=== PATIENT | female | born 1970 | race African-American/Black ===

== ENCOUNTER → 2016-11-23 | Day surgery (SDC) | payer OTHER ==
[~2016-11-23] VITALS: Ht 157.5 cm; Wt 136.0 kg
[~2016-11-23] MED LIST: ALBUAER3 INH; ALPR1TAB3 PO; BUPIVACAINE/EPINEPHRINE 0.5% PF 30 ML VIAL ONE; CLINDAMYCIN PHOS 900 MG/6 ML VIAL ONE; CYAN100025 SL; DEXT 5%-NACL 0.45% 1000 ML INJ 1,000 ML IV SCH; FAMOTIDINE 20 MG/2 ML VIAL ONE; FLUT1INH7 INH; HYDR12.56 PO; IPRA17I INH; LACTATED RINGER'S 1000 ML INJ 1,000 ML ONE; LORA10TA PO; LOSA50TA PO; MECL-62 PO; METOCLOPRAMIDE HCL 10 MG/2 ML VIAL ONE; MIDAZOLAM HCL 2 MG/2 ML VIAL ONE; OXYB5TAB10 PO; PROPOFOL 200 MG/20 ML AMP IV ONE; SODIUM CHLORIDE 0.9% FLUSH 5 ML FLUSH IVF PRN; SODIUM CHLORIDE 0.9% FLUSH 5 ML FLUSH IVF SCH; SODIUM CHLORIDE 0.9% INJ 100 ML ONE
[2016-11-23 07:28] LABS: HEMATOCRIT 41.7 % (35.0-46.0); MEAN CELL VOLUME 84.3 FL (80.0-100.0); MEAN CORPUSCULAR HEMOGLOBIN 27.5 PG (27.0-34.0); MEAN CORPUSCULAR HGB CONC 32.7 % (32.0-36.0); PLATELET COUNT 341 TH/MM3 (150-450); RED BLOOD COUNT 4.95 MIL/MM3 (4.00-5.30); RED CELL DISTRIBUTION WIDTH 15.2 % (11.6-17.2); REVIEW FLAG FINAL; WHITE BLOOD COUNT 9.6 TH/MM3 (4.0-11.0)
[2016-11-23 07:42] VITALS: BP 157/95; PULSE 74; RESP 20; TEMP 98.1; O2SAT 97
--- NOTE | 2016-11-23 10:42 | HP.UPD ---
H&P Update Date: Nov 23, 2016 Note The Pre-Admit History and Physical Examination regarding the above named patient was reviewed (including, but not limited to, vital signs, medications, allergies, co-morbid conditions), and upon re-examination it is noted that: Indicated with "X" x - the patient's condition has not significantly changed since the last examination. [] - the patient's condition has changed since the last examination. Changes: Sultana Tello MD Nov 23, 2016 10:42
--- NOTE | 2016-11-23 11:57 | HHI.PR ---
Immediate Post Op Note Procedure Date: Nov 23, 2016 Pre Op Diagnosis: (1) De Quervain's tenosynovitis, right Post Op Diagnosis: (1) De Quervain's tenosynovitis, right Surgeon: Sultana Tello Waterproof Bag Sewer(s): None Procedure: Release of the right first dorsal compartment. Anesthesia: MAC Drains: None Tourniquet time (min at mmHg) NA Patient to: SDS Patient Condition: Good Date/Time of Procedure: SEE SURGICAL CARE RECORD Sultana Tello MD Nov 23, 2016 11:57
[2016-11-23 11:58] VITALS: TEMP 98.4
[2016-11-23 12:25] VITALS: BP 148/89; PULSE 71; RESP 16; O2SAT 99
--- NOTE | 2016-11-27 11:17 | MP ---
cc: JEAN BROWNLEE M.D. DATE OF OPERATION 11/23/2016 PREOPERATIVE DIAGNOSIS De Quervain's tenosynovitis of the right wrist. POSTOPERATIVE DIAGNOSIS De Quervain's tenosynovitis of the right wrist. PROCEDURE Release of right first dorsal compartment. ANESTHESIA Local with MAC. SURGEON Dr. Jean Brownlee MD INDICATIONS A 46-year-old female with de Quervain's tenosynovitis of the right wrist. FINDINGS There was a significant amount of inflammation and thickening around the tendons. Indeed there was also a second tunnel. At the completion of the procedure both tunnels had been released. OPERATIVE TIME Approximately 30 minutes. PROCEDURE The patient was seen preoperatively where the site and side were identified and marked. The patient was then taken to the operating room, placed in a supine position. Her identity was checked against the arm band and the consent form, site and side confirmed, time-out called prior to beginning the procedure. The right upper extremities prepped with Hibiclens and draped in the usual sterile fashion. The area to be incised was outlined with a marking pen as a transverse incision over the first dorsal compartment. Once the patient was adequate anesthetized, bupivacaine 0.5% with epinephrine 1:200,000 was injected into the area to be operated. Once the anesthetic had taken effect, a #15 blade was used make an incision down through skin, down to the subcutaneous tissue. Under loupe magnification using spread technique, the first dorsal compartment was identified. It was then divided sharply using the extensor tendons within the compartment as a guide. Once the major part of the compartments was released, it was inspected for a second tendon compartment and indeed there was a second one. This was released. The thumb was then flexed and extended and excellent range of motion was noted. The tendons were put back into the compartment, adequately lined up and the wound was copiously irrigated with saline and closed with 4-0 Vicryl to the dermal layer and Dermabond to the skin. Once the glue had dried in several layers, Steri-Strips were applied along with Tegaderm and cast padding and a thumb spica splint. The patient was then taken from the operating room back to the holding area in satisfactory condition having tolerated the procedure well. Postoperative instructions include keeping the arm elevated, keeping the area clean and dry and returning next week for followup. The patient will take Tylenol for pain. MD ANN MARIE Dickerson/JS /12:00 PM /11:07 AM
== END | disposition home or self-care (01) ==
LOC: PHSDC 06:23
PROVIDERS: ATTEND Specialist
DX: M65.4 Radial styloid tenosynovitis [de Quervain] (principal); I10 Essential (primary) hypertension; E78.5 Hyperlipidemia, unspecified
CPT/HCPCS: 01810; 25000; 85027; J2250; J2765; J3010; J7120